=== PATIENT | female | born 1990 | race Two or more races ===

== ENCOUNTER 2017-02-20 19:56 | Emergency (ER) | payer OTHER ==
[2017-02-20] MEDS ORDERED: Sodium Chloride 0.9% 2.5 ML Syringe FLUSH PRN (20:49)
[2017-02-20] MEDS ORDERED: Sodium Chloride 0.9% 10 ML Syringe FLUSH PRN (20:49)
[2017-02-20] MEDS ORDERED: Sodium Chloride 0.9% 1,000 ML IV ONE (20:49)
[2017-02-20] MEDS ORDERED: Ondansetron 4 MG/2 ML SDV IVPUSH ONE (20:50)
--- NOTE | 2017-02-20 20:53 | EDM.PDOC ---
<Stacie Real - Last Filed: 02/20/17 21:42> ED HPI GENERAL MEDICAL PROBLEM - General Chief Complaint: Abdominal Pain Stated Complaint: PT HAS PAIN ON LT SIDE OF BODY Time Seen by Provider: 02/20/17 20:50 Source of Information: Reports: Patient History Limitations: Reports: No Limitations - History of Present Illness INITIAL COMMENTS - FREE TEXT/NARRATIVE: HISTORY AND PHYSICAL: []26-year-old female presenting with right-sided gastric pain History of Present Illness: []Started having pain this morning tried eat breakfast and had nausea and vomiting continues to have nausea and pain at this time Patient states she is about 6 weeks Review of Systems: As per history of present illness and below otherwise all systems reviewed and negative. Past medical history: As per history of present illness and as reviewed below otherwise noncontributory. Surgical history: As per history of present illness and as reviewed below otherwise noncontributory. Social history: No reported history of drug or alcohol abuse. Family history: As per history of present illness and as reviewed below otherwise noncontributory. Physical exam: Alert and oriented female answering questions in full sentences does not take a deep breath as this increases her pain. HEENT: Atraumatic, normocehpalic, pupils reactive, negative for conjunctival pallor or scleral icterus, mucous membranes moist, throat clear, neck supple, nontender, trachea midline. Lungs: Clear to auscultation, breath sounds equal bilaterally, chest non tender. Heart: S1S2, regular, negative for clicks, rubs, or JVD. Abdomen: Soft, nondistended, tender with palpation to the right epigastric. No rebound and no guarding. Negative for masses or hepatossplenmegaly. Negative for costovertebral tenderness. Pelvis: Stable nontender. Genitourinary: Deferred. Rectal: Deferred Extremities: Atraumatic, negative for cords or calf pain. Neurovascular unremarkable. Neuro: Awake, alert, oriented. Cranial nerves II through XII unremarkable. Cerebellum unremarkable. Motor and sensory unremarkable throughout. Exam nonfocal. Transfer of care will be to Dr. Ma report has been given regarding this patient's complaints Diagnostics: [CBC CMP UA urine culture amylase lipase abdominal ultrasound limited] Therapeutics: [1 L fluid Zofran] Impression: [Right-sided abdominal pain] Plan: [] Definitive disposition and diagnosis as appropriate pending reevaluation and review of above. Onset: Today, Sudden Duration: Hour(s):, Getting Worse Location: Reports: Abdomen Quality: Reports: Stabbing Severity: Moderate Improves with: Reports: None Worsens with: Reports: None Associated Symptoms: Reports: Nausea/Vomiting Right Lower Abdominal Pain Score (Numeric/FACES): 7 - Related Data Allergies Allergy/AdvReac Type Severity Reaction Status Date / Time No Known Allergies Allergy Verified 02/20/17 20:28 Home Meds: Home Meds . [No Known Home Meds] 02/20/17 [History] Past Medical History - Past Health History Medical/Surgical History: Denies Medical/Surgical History Social & Family History - Tobacco Use Smoking Status *Q: Never Smoker Second Hand Smoke Exposure: No - Caffeine Use Caffeine Use: Reports: Soda - Recreational Drug Use Recreational Drug Use: No ED ROS GENERAL - Review of Systems Review Of Systems: ROS reveals no pertinent complaints other than HPI. ED EXAM, GI/ABD - Physical Exam Exam: See Below (see dictation) Course - Vital Signs Last Recorded V/S: Last Vital Signs Temp 98.9 F 02/20/17 20:32 Pulse 72 02/20/17 22:54 Resp 16 02/20/17 22:54 BP 95/59 L 02/20/17 22:54 Pulse Ox 100 02/20/17 22:54 - Orders/Labs/Meds Orders: Active Orders 24 hr Category Date Time Status Abdomen Ltd [US] Stat Exams 02/20/17 20:49 Taken OB 1st Tri Sgl 1st Gest [US] Stat Exams 02/20/17 21:46 Taken CULTURE URINE [] Stat Lab 02/20/17 21:10 Received Sodium Chloride 0.9% [Saline Flush] Med 02/20/17 20:49 Active 10 ml FLUSH ASDIRECTED PRN Sodium Chloride 0.9% [Saline Flush] Med 02/20/17 20:49 Active 2.5 ml FLUSH ASDIRECTED PRN Saline Lock Insert [OM.PC] Stat Oth 02/20/17 20:49 Ordered Medication Orders Sodium Chloride (Saline Flush) 10 ml FLUSH ASDIRECTED PRN PRN Reason: Keep Vein Open Last Admin: 02/20/17 21:19 Dose: 10 ml Sodium Chloride (Saline Flush) 2.5 ml FLUSH ASDIRECTED PRN PRN Reason: Keep Vein Open Last Admin: 02/20/17 21:19 Dose: 2.5 ml Labs: Laboratory Tests 02/20/17 02/20/17 02/20/17 Range/Units 21:04 21:04 21:10 WBC 10.77 (4.0-11.0) K/uL RBC 4.21 L (4.30-5.90) M/uL Hgb 10.9 L (12.0-16.0) g/dL Hct 32.7 L (36.0-46.0) % MCV 77.7 L (80.0-98.0) fL MCH 25.9 L (27.0-32.0) pg MCHC 33.3 (31.0-37.0) g/dL RDW Std Deviation 40.3 (28.0-62.0) fl RDW Coeff of Jeyson 14 (11.0-15.0) % Plt Count 264 (150-400) K/uL MPV 8.60 (7.40-12.00) fL Neut % (Auto) 75.8 (48.0-80.0) % Lymph % (Auto) 12.2 L (16.0-40.0) % Benson % (Auto) 9.7 (0.0-15.0) % Eos % (Auto) 2.2 (0.0-7.0) % Baso % (Auto) 0.1 (0.0-1.5) % Neut # (Auto) 8.2 H (1.4-5.7) K/uL Lymph # (Auto) 1.3 (0.6-2.4) K/uL Benson # (Auto) 1.0 H (0.0-0.8) K/uL Eos # (Auto) 0.2 (0.0-0.7) K/uL Baso # (Auto) 0.0 (0.0-0.1) K/uL Nucleated RBC % 0.0 /100WBC Nucleated RBCs # 0 K/uL Sodium 134 L (136-146) mmol/L Potassium 3.8 (3.5-5.1) mmol/L Chloride 105 (98-110) mmol/L Carbon Dioxide 20 L (21-31) mmol/L BUN 7 (6.0-23.0) mg/dL Creatinine 0.6 (0.6-1.5) mg/dL Est Cr Clr Drug Dosing 117.00 mL/min Estimated GFR (MDRD) > 60.0 ml/min Glucose 84 (60-110) mg/dL Calcium 9.7 (8.8-10.8) mg/dL Total Bilirubin 0.4 (0.1-1.5) mg/dL AST 12 (5-40) IU/L ALT 9 (8-54) IU/L Alkaline Phosphatase 55 (40-150) Total Protein 7.4 (6.0-8.0) g/dL Albumin 4.0 (3.5-5.0) g/dL Globulin 3.4 (2.0-3.5) g/dL Albumin/Globulin Ratio 1.2 L (1.3-2.8) Amylase 68 (10-90) U/L Lipase 30 (7-80) U/L Urine Color YELLOW Urine Appearance SLT CLOUDY Urine pH 7.0 (5.0-8.0) Ur Specific [place] 1.020 (1.001-1.035) Urine Protein NEGATIVE (NEGATIVE) mg/dL Urine Glucose (UA) NEGATIVE (NEGATIVE) mg/dL Urine Ketones >=80 (NEGATIVE) mg/dL Urine Occult Blood NEGATIVE (NEGATIVE) Urine Nitrite NEGATIVE (NEGATIVE) Urine Bilirubin NEGATIVE (NEGATIVE) Urine Urobilinogen 1.0 (<2.0) EU/dL Ur Leukocyte Esterase NEGATIVE (NEGATIVE) Urine RBC 0-2 (0-2/HPF) Urine WBC 1-3 (0-5/HPF) Ur Epithelial Cells FEW (NONE-FEW) Amorphous Sediment FEW (NEGATIVE) Urine Bacteria FEW (NEGATIVE) Urine Mucus FEW (NONE-MOD) Meds: Medications Generic Name Dose Route Start Last Admin Trade Name Freq PRN Reason Stop Dose Admin Sodium Chloride 10 ml 02/20/17 20:49 02/20/17 21:19 Saline Flush FLUSH 10 ml ASDIRECTED PRN Administration Keep Vein Open Sodium Chloride 2.5 ml 02/20/17 20:49 02/20/17 21:19 Saline Flush FLUSH 2.5 ml ASDIRECTED PRN Administration Keep Vein Open Discontinued Medications Generic Name Dose Route Start Last Admin Trade Name Freq PRN Reason Stop Dose Admin Sodium Chloride 1,000 mls @ 999 mls/hr 02/20/17 20:49 12/03/17 21:18 Normal Saline IV 02/20/17 21:49 999 mls/hr STAT ONE Administration Ondansetron HCl 4 mg 02/20/17 20:50 02/20/17 21:19 Zofran IVPUSH 02/20/17 20:51 4 mg ONETIME ONE Administration Departure - Departure Time of Disposition: 21:45 Disposition: Still A Patient 30 Condition: Good Clinical Impression: Abdominal pain Qualifiers: Abdominal location: right upper quadrant Qualified Code(s): R10.11 - Right upper quadrant pain - Discharge Information Referrals: PCP,None [Primary Care Provider] - Forms: ED Department Discharge - My Orders Last 24 Hours: My Active Orders 02/20/17 21:46 OB 1st Tri Sgl 1st Gest [US] Stat - Assessment/Plan Last 24 Hours: My Active Orders 02/20/17 21:46 OB 1st Tri Sgl 1st Gest [US] Stat <Bobby Shanks - Last Filed: 02/21/17 00:08> ED HPI GENERAL MEDICAL PROBLEM - History of Present Illness INITIAL COMMENTS - FREE TEXT/NARRATIVE: Patient seen and evaluated agree with above Ultrasound right upper quadrant as well as OB ultrasound performed Assessment Abdominal pain improved 8 weeks 3 days intrauterine heart rate 160s on ultrasound Hyperemesis gravidarum Mild dehydration Plan Fluids as above Fluid hydration techniques discussed Nutrition plan discussed Zofran 8 mg ODT every 8 hours when necessary #30 no refill Follow-up with OB for continued management Return if symptoms persist or worsen or new concerning symptoms develop
[2017-02-20 21:33] LABS: CHLORIDE,CL 105 mmol/L (98-110); SODIUM,NA 134 mmol/L (136-146)
--- NOTE | 2017-02-21 16:46 | US ---
EXAM DATE: 02/20/17 PATIENT'S AGE: 26 Patient: HECTOR FREITAS Facility: [place], [place] Site Site : 1990 Study: US Abdomen RUQ-02/20/2017 10:41:21 PM Ordering Physician: SHO GRAY Final Report: INDICATION: Right upper quadrant pain. TECHNIQUE: Ultrasound abdomen limited. Sonographic images of the right upper quadrant were obtained using callejas-scale and color Doppler images. COMPARISON: None. FINDINGS: Liver: Normal in size and echotexture. No masses. No intrahepatic biliary dilatation. Liver length 17.3 centimeters. Gallbladder: No stones or sludge. Normal wall thickness. No pericholecystic fluid. Common bile duct: 2 mm. Pancreas: Unremarkable. Right kidney: 12.6 cm. Normal echotexture and cortex. No masses, stones, or hydronephrosis. Vasculature: Proximal abdominal aorta and IVC are unremarkable. IMPRESSION: Unremarkable right upper quadrant ultrasound. Dictated by Shahid Feliz MD @ 02/20/2017 11:52:45 PM Dictated by: Shahid Feliz MD @ 02/20/2017 23:52:50 (Electronic Signature) Report Signed by Proxy. [facility] PSYCHIATRIC CENTERDebra
--- NOTE | 2017-02-21 16:47 | US ---
EXAM DATE: 02/20/17 PATIENT'S AGE: 26 Patient: HECTOR FREITAS Facility: [place], [place] Site Site : 1990 Study: US OB Pelvis -02/20/2017 10:42:08 PM Ordering Physician: SHO GRAY Final Report: INDICATION: Abdominal pain, vaginal bleeding. TECHNIQUE: Ultrasound OB pelvis transvaginal. Real time callejas scale imaging of the pelvis was performed. COMPARISON: None FINDINGS: Sonographic imaging demonstrates a single intrauterine gestation. The embryo demonstrates a regular cardiac rate measuring 160 beats per minute. The embryo` s crown rump length measurement of 18.6 mm corresponds to a gestational age of 8 weeks 3 days. There is a normal appearing yolk sac. There are no gross abnormalities noted within the embryo at this early state of development. The placenta has not yet developed. The gestational sac has a normal appearance and there is no evidence of a perigestational hemorrhage. The amount of fluid within the sac appears appropriate for gestational age. The cervix is closed. The myometrium appears normal. The ovaries are of normal size. No significant ascites noted. IMPRESSION: 1. Single viable intrauterine with an estimated gestational age of 8 weeks 3 days. 2. No subchorionic hemorrhage identified. Dictated by Shahid Feliz MD @ 02/20/2017 11:57:28 PM Dictated by: Shahid Feliz MD @ 02/20/2017 23:57:31 (Electronic Signature) Report Signed by Proxy. LUCIO
== END 2017-02-21 00:17 | disposition home or self-care (01) ==
LOC: MW.ED 19:56
DX: O21.1 Hyperemesis gravidarum with metabolic disturbance (principal); O99.89 Other specified diseases and conditions complicating pregnancy, childbirth and the puerperium; R10.11 Right upper quadrant pain; Z3A.08 8 weeks gestation of pregnancy
CPT/HCPCS: 36415; 76705; 76801; 80053; 81001; 82150; 83690; 85025; 87086; 96361; 96374; 99284; J2405; J7040

== ENCOUNTER 2017-02-23 09:14 | Emergency (ER) | payer OTHER ==
[2017-02-23] MEDS ORDERED: Sodium Chloride 0.9% 2.5 ML Syringe FLUSH PRN (09:36)
[2017-02-23] MEDS ORDERED: Sodium Chloride 0.9% 10 ML Syringe FLUSH PRN (09:36)
[2017-02-23] MEDS ORDERED: Metoclopramide 10 MG/2 ML SDV IV ONE (09:36)
[2017-02-23] MEDS ORDERED: Sodium Chloride 0.9% 2,000 ML IV ONE (09:36)
--- NOTE | 2017-02-23 09:40 | EDM.PDOC ---
ED HPI GENERAL MEDICAL PROBLEM - General Chief Complaint: Gastrointestinal Problem Time Seen by Provider: 02/23/17 09:19 Source of Information: Reports: Patient History Limitations: Reports: No Limitations - History of Present Illness INITIAL COMMENTS - FREE TEXT/NARRATIVE: History of present illness: []Patient is 8 weeks and presents with vomiting profusely. She was seen here this weekend for the same symptoms and hydrated with improvement. Have an ultrasound and labs done that were normal. Review of systems: As per history of present illness and below otherwise all systems reviewed and negative. Past medical history: As per history of present illness and as reviewed below otherwise noncontributory. Surgical history: As per history of present illness and as reviewed below otherwise noncontributory. Social history: No reported history of drug or alcohol abuse. Family history: As per history of present illness and as reviewed below otherwise noncontributory. Physical exam: General: Well developed, well nourished in NAD HEENT: Atraumatic, normocephalic, pupils reactive, negative for conjunctival pallor or scleral icterus, mucous membranes moist, throat clear, neck supple, nontender, trachea midline. Lungs: Clear to auscultation, breath sounds equal bilaterally, chest nontender. Heart: S1S2, regular, negative for clicks, rubs, or JVD. Abdomen: Soft, nondistended, nontender. Negative for masses or hepatosplenomegaly. Negative for costovertebral tenderness. Pelvis: Stable nontender. Genitourinary: Deferred. Rectal: Deferred. Extremities: Atraumatic, negative for cords or calf pain. Neurovascular unremarkable. Neuro: Awake, alert, oriented. Cranial nerves II through XII unremarkable. Cerebellum unremarkable. Motor and sensory unremarkable throughout. Exam nonfocal. Diagnostics: []Ultrasound shows heart rate of 153 Therapeutics: []3 L normal saline and time medics given with improvement Impression: []Hyperemesis Plan: []Phenergan suppositories every 6 hours as needed for nausea and vomiting increase fluids as tolerated follow-up with her [facility] in Definitive disposition and diagnosis as appropriate pending reevaluation and review of above. Right Back Pain Score (Numeric/FACES): 3 - Related Data Allergies Allergy/AdvReac Type Severity Reaction Status Date / Time No Known Allergies Allergy Verified 02/23/17 09:26 Home Meds: Home Meds Promethazine HCl [Phenergan] 25 mg RC Q6HR PRN #12 supp.rect 02/23/17 [Rx] Past Medical History - Past Health History Medical/Surgical History: Denies Medical/Surgical History - Infectious Disease History Infectious Disease History: Reports: Chicken Pox Social & Family History - Family History Family Medical History: Noncontributory - Tobacco Use Smoking Status *Q: Never Smoker Second Hand Smoke Exposure: No - Caffeine Use Caffeine Use: Reports: Soda - Recreational Drug Use Recreational Drug Use: No ED ROS GENERAL - Review of Systems Review Of Systems: See Below (See history of present illness) ED EXAM, GI/ABD - Physical Exam Exam: See Below (See history of present illness) Course - Vital Signs Last Recorded V/S: Last Vital Signs Temp 98.6 F 02/23/17 09:23 Pulse 73 02/23/17 10:53 Resp 13 02/23/17 10:53 BP 102/56 L 02/23/17 10:53 Pulse Ox 98 02/23/17 10:53 - Orders/Labs/Meds Orders: Active Orders 24 hr Category Date Time Status Sodium Chloride 0.9% [Saline Flush] Med 02/23/17 09:36 Active 10 ml FLUSH ASDIRECTED PRN Sodium Chloride 0.9% [Saline Flush] Med 02/23/17 09:36 Active 2.5 ml FLUSH ASDIRECTED PRN Saline Lock Insert [OM.PC] Stat Oth 02/23/17 09:36 Ordered Medication Orders Sodium Chloride (Saline Flush) 10 ml FLUSH ASDIRECTED PRN PRN Reason: Keep Vein Open Last Admin: 02/23/17 09:50 Dose: 10 ml Sodium Chloride (Saline Flush) 2.5 ml FLUSH ASDIRECTED PRN PRN Reason: Keep Vein Open Last Admin: 02/23/17 09:50 Dose: 2.5 ml Labs: Laboratory Tests 02/23/17 Range/Units 09:46 Sodium 133 L (136-146) mmol/L Potassium 4.6 (3.5-5.1) mmol/L Chloride 106 (98-110) mmol/L Carbon Dioxide 11 L (21-31) mmol/L BUN 12 (6.0-23.0) mg/dL Creatinine 0.7 (0.6-1.5) mg/dL Est Cr Clr Drug Dosing 92.29 mL/min Estimated GFR (MDRD) > 60.0 ml/min Glucose 76 (60-110) mg/dL Calcium 10.6 (8.8-10.8) mg/dL Meds: Medications Generic Name Dose Route Start Last Admin Trade Name Freq PRN Reason Stop Dose Admin Sodium Chloride 10 ml 02/23/17 09:36 02/23/17 09:50 Saline Flush FLUSH 10 ml ASDIRECTED PRN Administration Keep Vein Open Sodium Chloride 2.5 ml 02/23/17 09:36 02/23/17 09:50 Saline Flush FLUSH 2.5 ml ASDIRECTED PRN Administration Keep Vein Open Discontinued Medications Generic Name Dose Route Start Last Admin Trade Name Freq PRN Reason Stop Dose Admin Sodium Chloride 2,000 mls @ 999 mls/hr 02/23/17 09:36 02/23/17 09:50 Normal Saline IV 02/23/17 11:36 999 mls/hr .Bolus ONE Administration Sodium Chloride 1,000 mls @ 999 mls/hr 02/23/17 11:52 02/23/17 11:58 Normal Saline IV 02/23/17 12:52 999 mls/hr .Bolus ONE Administration Metoclopramide HCl 10 mg 02/23/17 09:36 02/23/17 09:50 Reglan IV 02/23/17 09:37 10 mg ONETIME ONE Administration Departure - Departure Time of Disposition: 13:12 Disposition: Home, Self-Care 01 Condition: Good Clinical Impression: Hyperemesis gravidarum - Discharge Information Prescriptions: Promethazine HCl [Phenergan] 25 mg RC Q6HR PRN #12 supp.rect PRN Reason: Nausea Referrals: PCP,None [Primary Care Provider] - Forms: ED Department Discharge Additional Instructions: The following information is given to patients seen in the emergency department who are being discharged to home. This information is to outline your options for follow-up care. We provide all patients seen in our emergency department with a follow-up referral. The need for follow-up, as well as the timing and circumstances, are variable depending upon the specifics of your emergency department visit. If you don't have a primary care physician on staff, we will provide you with a referral. We always advise you to contact your personal physician following an emergency department visit to inform them of the circumstance of the visit and for follow-up with them and/or the need for any referrals to a consulting specialist. The emergency department will also refer you to a specialist when appropriate. This referral assures that you have the opportunity for follow-up care with a specialist. All of these measure are taken in an effort to provide you with optimal care, which includes your follow-up. Under all circumstances we always encourage you to contact your private physician who remains a resource for coordinating your care. When calling for follow-up care, please make the office aware that this follow-up is from your recent emergency room visit. If for any reason you are refused follow-up, please contact the [facility] Emergency Department at and asked to speak to the emergency department charge nurse. Phenergan suppositories as directed follow-up with OB increase fluids as tolerated [facility] - Women[facility] [address] [place] [id number] - My Orders Last 24 Hours: My Active Orders 02/23/17 09:36 Sodium Chloride 0.9% [Saline Flush] 10 ml FLUSH ASDIRECTED PRN Sodium Chloride 0.9% [Saline Flush] 2.5 ml FLUSH ASDIRECTED PRN Saline Lock Insert [OM.PC] Stat - Assessment/Plan Last 24 Hours: My Active Orders 02/23/17 09:36 Sodium Chloride 0.9% [Saline Flush] 10 ml FLUSH ASDIRECTED PRN Sodium Chloride 0.9% [Saline Flush] 2.5 ml FLUSH ASDIRECTED PRN Saline Lock Insert [OM.PC] Stat
[2017-02-23 10:30] LABS: CHLORIDE,CL 106 mmol/L (98-110); SODIUM,NA 133 mmol/L (136-146)
[2017-02-23] MEDS ORDERED: Sodium Chloride 0.9% 1,000 ML IV ONE (11:52)
--- NOTE | 2017-02-23 12:36 | US ---
EXAMINATION: Limited Transvaginal obstetric ultrasound HISTORY: COMPARISON: 02/19/2017 TECHNIQUE: Grayscale and M-mode images obtained. FINDINGS/IMPRESSION: There is an early intrauterine gestation identified with cardiac activity. The f etal heart rate is 163 bpm.
== END 2017-02-23 13:26 | disposition home or self-care (01) ==
LOC: MW.ED 09:14
DX: O21.0 Mild hyperemesis gravidarum (principal); Z3A.08 8 weeks gestation of pregnancy
CPT/HCPCS: 36415; 76815; 80048; 96361; 96374; 99284; J2765; J7040